=== PATIENT | female | born 1995 | race Two or more races ===

== ENCOUNTER 2023-04-21 19:56 | Emergency (ER) | payer MEDICAID, OTHER ==
[~2023-04-21] VITALS: Ht 170.2 cm; Wt 86.5 kg
[2023-04-21 20:49] VITALS: BP 105/49; PULSE 71; RESP 18; O2SAT 96
== END 2023-04-21 23:42 | disposition left against medical advice (07) ==
LOC: ER 19:56
DX: M25.571 Pain in right ankle and joints of right foot (principal); Z53.21 Procedure and treatment not carried out due to patient leaving prior to being seen by health care provider